=== PATIENT | male | born 1965 | race Caucasian/White ===

== ENCOUNTER 2022-07-18 09:03 | Inpatient (IN) ==
[2022-07-18 09:52] LABS: Basophils # 0.1 K/mcL (0.0-0.2); Basophils % 0.8 %; Eosinophils % 0.5 %; Hematocrit 37.5 % (37.5-50.1); Hemoglobin 12.1 g/dL (12.9-16.9); Immature Granulocytes % 0.5 % (0-4); Lymphocytes # 1.4 K/mcL (0.6-4.6); Lymphocytes % 17.8 %; Mean Corpuscular HGB Conc 32.3 g/dL (31.6-35.5); Mean Corpuscular Hemoglobin 27.6 pg (28.0-33.3); Mean Corpuscular Volume 85.4 fL (83.0-100.0); Mean Platelet Volume 10.2 fL (9.4-12.4); Monocytes # 0.5 K/mcL (0.0-1.3); Neutrophils # 5.6 K/mcL (1.6-8.9); Platelet Count 282 K/mcL (140-400); Red Blood Count 4.39 M/mcL (4.19-5.50); Red Cell Distribution Width 13.7 % (11.5-14.5); Segmented Neutrophils % 73.4 %; White Blood Count 7.6 K/mcL (4.3-11.1)
[2022-07-18 10:12] LABS: BUN/Creatinine Ratio 7 (6-26); Blood Urea Nitrogen 33 mg/dL (6-20); Calcium 9.4 mg/dL (8.6-10.3); Carbon Dioxide 22 mEq/L (23-29); Chloride 97 mEq/L (98-107); Glucose 229 mg/dL (70-105); Osmolality,Calculated 291 (280-300); Potassium 3.4 mEq/L (3.5-5.1); Sodium 133 mEq/L (136-145); Troponin I < 0.03 ng/mL (< 0.04)
[2022-07-18] MEDS ORDERED: 0.9 % Sodium Chloride 1,000 ML IVC ONE (10:19)
[2022-07-18] MEDS ORDERED: Ondansetron 4 MG/2 ML VIAL IVP ONE (10:19)
[2022-07-18 10:52] LABS: Alanine Aminotransferase 12 Units/L (7-52); Albumin 3.9 g/dL (3.5-5.7); Albumin/Globulin Ratio 1.2 (1.1-2.2); Alkaline Phosphatase 70 Units/L (34-104); Aspartate Amino Transferase 12 Units/L (13-39); Bilirubin,Direct 0.1 mg/dL (0.0-0.2); Bilirubin,Indirect 0.3 mg/dL (0.0-1.0); Bilirubin,Total 0.4 mg/dL (0.3-1.0); Globulin 3.2 g/dL (2.4-3.5); Lipase 125 Units/L (11-82); Total Protein 7.1 g/dL (6.4-8.9)
[2022-07-18] MEDS ORDERED: Ondansetron 4 MG/2 ML VIAL IVP PRN (12:04)
[2022-07-18] MEDS ORDERED: Naloxone 0.4 MG/ML INJ IVP PRN (12:04)
[2022-07-18] MEDS ORDERED: Acetaminophen 325 MG TABLET PO PRN (12:04)
[2022-07-18] MEDS ORDERED: D5% in Water 1,000 ML IVC PRN (12:11)
[2022-07-18] MEDS ORDERED: *HR* Dextrose 50 % in Water (Syg) 50 ML SYRINGE IVP PRN (12:11)
[2022-07-18] MEDS ORDERED: Dextrose Gel 15 GM/37.5 ML TUBE PO PRN ×2 (12:11)
[2022-07-18] MEDS ORDERED: Nitroglycerin 0.4 MG TAB.SUBL SL PRN (12:41)
[2022-07-18] MEDS: 0.9 % Sodium Chloride 1,000 ML IVC SCH (13:04)
[2022-07-18 16:04] LABS: Bilirubin,Urine Negative (Negative); Blood,Urine Negative (Negative); Clarity,Urine Clear (Clear); Color,Urine Colorless (Yellow); Glucose,Urine (UA) Normal (Normal); Ketones,Urine Negative (Negative); Leukocyte Esterase,Urine Negative (Negative); Nitrite,Urine Negative (Negative); PH,Urine 5.5 pH Units (5.0-8.0); Protein,Urine Trace mg/dL (Neg-Trace); Urobilinogen,Urine Normal (Normal)
[2022-07-18] MEDS: Insulin LISPRO 300 UNITS/3 ML VIAL SUBQ SCH ×2 (18:25→23:54)
[2022-07-18] MEDS: *HR* Heparin 5,000 UNIT/ML VIAL SQ SCH (18:36)
[2022-07-18 20:20] LABS: Estimated Average Glucose 154 mg/dl
[2022-07-18 20:30] LABS: Prothrombin Time 11.6 Seconds (9.4-12.1)
[2022-07-18 20:38] LABS: Magnesium 1.5 mg/dL (1.6-2.6); Phosphorous 3.9 mg/dL (2.7-4.5)
[2022-07-18] MEDS: Fluticasone Propionate Nasal 50 MCG/SPRAY BOTTLE NS SCH (23:41)
[2022-07-18] MEDS: traZODone 50 MG TABLET PO SCH (23:41)
[2022-07-19] MEDS: Gabapentin 300 MG CAPSULE PO SCH ×4 (01:43→22:02)
[2022-07-19] MEDS: 0.9 % Sodium Chloride 1,000 ML IVC SCH ×3 (01:44→18:30)
[2022-07-19 05:10] LABS: Basophils # 0.1 K/mcL (0.0-0.2); Basophils % 0.9 %; Eosinophils # 0.1 K/mcL (0.0-0.6); Eosinophils % 2.2 %; Hematocrit 34.4 % (37.5-50.1); Hemoglobin 11.4 g/dL (12.9-16.9); Immature Granulocytes % 0.7 % (0-4); Lymphocytes % 17.3 %; Mean Corpuscular HGB Conc 33.1 g/dL (31.6-35.5); Mean Corpuscular Hemoglobin 27.9 pg (28.0-33.3); Mean Corpuscular Volume 84.1 fL (83.0-100.0); Mean Platelet Volume 10.2 fL (9.4-12.4); Monocytes # 0.7 K/mcL (0.0-1.3); Monocytes % 11.8 %; Neutrophils # 3.9 K/mcL (1.6-8.9); Platelet Count 257 K/mcL (140-400); Red Blood Count 4.09 M/mcL (4.19-5.50); Red Cell Distribution Width 13.5 % (11.5-14.5); Segmented Neutrophils % 67.1 %; White Blood Count 5.8 K/mcL (4.3-11.1)
[2022-07-19 05:17] LABS: Chol/HDL Ratio 4.4 (0-4.9); Cholesterol 141 mg/dL (< 200); HDL Cholesterol 32 mg/dL (40-59); LDL Cholesterol,Calculated 81 mg/dL (< 100); Triglycerides 141 mg/dL (< 150); Troponin I < 0.03 ng/mL (< 0.04)
[2022-07-19] MEDS: *HR* Heparin 5,000 UNIT/ML VIAL SQ SCH ×2 (05:23→18:24)
[2022-07-19] MEDS: Insulin LISPRO 300 UNITS/3 ML VIAL SUBQ SCH ×3 (05:24→16:53)
[2022-07-19 07:36] LABS: BUN/Creatinine Ratio 10 (6-26); Blood Urea Nitrogen 28 mg/dL (6-20); Calcium 8.7 mg/dL (8.6-10.3); Carbon Dioxide 23 mEq/L (23-29); Chloride 104 mEq/L (98-107); Glucose 126 mg/dL (70-105); Osmolality,Calculated 289 (280-300); Potassium 3.5 mEq/L (3.5-5.1); Sodium 136 mEq/L (136-145)
[2022-07-19 08:25] LABS: Magnesium 1.4 mg/dL (1.6-2.6); Phosphorous 3.6 mg/dL (2.7-4.5)
[2022-07-19] MEDS: Aspirin 81 MG TAB.CHEW PO SCH (10:13)
[2022-07-19] MEDS: Fluticasone Propionate Nasal 50 MCG/SPRAY BOTTLE NS SCH ×2 (10:13→22:03)
[2022-07-19] MEDS: Pantoprazole 40 MG VIAL IVP SCH (10:13)
[2022-07-19] MEDS ORDERED: Lidocaine -MPF 2% 5 ML VIAL ONE (10:45)
[2022-07-19] MEDS ORDERED: *HR* Propofol 200 MG/20 ML VIAL IVP ONE (10:45)
[2022-07-19] MEDS: ARIPiprazole 5 MG TABLET PO SCH (12:09)
[2022-07-19] MEDS: BuPROPion XL (24 HR) 150 MG TABLET PO SCH (12:09)
[2022-07-19 17:25] LABS: Sodium, Urine 40.4 mEq/L
[2022-07-19] MEDS ORDERED: Insulin LISPRO 300 UNITS/3 ML VIAL SUBQ SCH (21:00)
[2022-07-19] MEDS: traZODone 50 MG TABLET PO SCH (22:02)
[2022-07-20 01:36] LABS: Basophils % 0.7 %; Eosinophils # 0.2 K/mcL (0.0-0.6); Eosinophils % 3.6 %; Hematocrit 32.1 % (37.5-50.1); Hemoglobin 10.6 g/dL (12.9-16.9); Immature Granulocytes % 0.5 % (0-4); Lymphocytes # 1.2 K/mcL (0.6-4.6); Lymphocytes % 26.2 %; Mean Corpuscular Hemoglobin 27.9 pg (28.0-33.3); Mean Corpuscular Volume 84.5 fL (83.0-100.0); Mean Platelet Volume 10.2 fL (9.4-12.4); Monocytes # 0.6 K/mcL (0.0-1.3); Monocytes % 12.7 %; Neutrophils # 2.5 K/mcL (1.6-8.9); Platelet Count 247 K/mcL (140-400); Red Cell Distribution Width 13.4 % (11.5-14.5); Segmented Neutrophils % 56.3 %; White Blood Count 4.4 K/mcL (4.3-11.1)
[2022-07-20 01:54] LABS: Calcium 8.2 mg/dL (8.6-10.3); Magnesium 1.6 mg/dL (1.6-2.6); Potassium 3.1 mEq/L (3.5-5.1)
[2022-07-20 03:17] LABS: Hepatitis B Surface Antigen Nonreactive (Nonreactive)
[2022-07-20 03:46] LABS: Hepatitis B Core IgM Nonreactive (Nonreactive)
[2022-07-20 03:48] LABS: Hepatitis A Antibody IgM Nonreactive (Nonreactive); Hepatitis C Virus Antibody Nonreactive (Nonreactive)
[2022-07-20] MEDS ORDERED: Potassium Chloride Elixir 20 MEQ/15 ML UDC PO ONE (04:38)
[2022-07-20] MEDS: *HR* Heparin 5,000 UNIT/ML VIAL SQ SCH (05:52)
[2022-07-20 08:14] VITALS: BP 113/71; PULSE 58; TEMP 97.9; O2SAT 99
[2022-07-20] MEDS: Insulin LISPRO 300 UNITS/3 ML VIAL SUBQ SCH ×2 (08:17→11:36)
[2022-07-20] MEDS: Gabapentin 300 MG CAPSULE PO SCH (08:48)
[2022-07-20] MEDS: ARIPiprazole 5 MG TABLET PO SCH (08:49)
[2022-07-20] MEDS: Pantoprazole 40 MG VIAL IVP SCH (08:49)
[2022-07-20] MEDS: BuPROPion XL (24 HR) 150 MG TABLET PO SCH (08:49)
[2022-07-20] MEDS: Aspirin 81 MG TAB.CHEW PO SCH (08:49)
[2022-07-20] MEDS: 0.9 % Sodium Chloride 1,000 ML IVC SCH (08:49)
[2022-07-20] MEDS ORDERED: Magnesium Oxide 400 MG TABLET PO SCH (09:00)
[2022-07-20] MEDS: Fluticasone Propionate Nasal 50 MCG/SPRAY BOTTLE NS SCH (09:03)
== END 2022-07-20 13:07 | disposition home or self-care (01) | DRG 683 ==
LOC: EMEROOARM 09:03 → 2ANU 09:03 → MERGE 12:52 → SUATTDRO 12:52 → 2ANU 14:24
PROVIDERS: ADMIT General Practice; ATTEND Family Medicine
PROC: ENDOEBX (2022-07-19 10:50)